=== PATIENT | male | born 1980 | race American Indian/Alaskan Native ===

== ENCOUNTER 2018-12-08 20:18 | Emergency (ER) | payer OTHER ==
[2018-12-08] MEDS ORDERED: TYLENOL PO ONE (20:27)
--- NOTE | 2018-12-08 21:39 | XRay Report ---
PROCEDURE: XR CHEST ROUTINE 2V TECHNIQUE: 2 view chest HISTORY: fever COMPARISONS: FINDINGS: Cardiac and mediastinal contours are unremarkable. No focal pulmonary infiltrate identified. No pleur al fluid collection seen. Minor vasculature is unremarkable. IMPRESSION: Negative two-view chest. This document is electronically signed by Sixto Rueda MD., December 08 2018 09:38:03 PM ET
--- NOTE | 2018-12-08 22:33 | Emergency Department Report ---
ED Fever HPI - General Chief Complaint: Chest Pain Stated Complaint: CHEST PAIN, CHILLS, FEVER, BODY ACHES Time Seen by Provider: 12/08/18 22:24 Source: patient, family - History of Present Illness Initial Comments: 38-year-old male presents to ED with complaint of fever. Patient reports fever of 103 at home. Patient also complaining of associated headache, cough, chest pain with cough, generalized body aches. Patient denies sore throat, vomiting, abdominal pain, diarrhea. states her daughter have one episode of vomiting yesterday, however no other symptoms. Patient did not receive flu shot this year. 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 denies: nausea/vomiting, shortness of breath, sore throat, stiff neck ED Review of Systems ROS: Stated complaint: CHEST PAIN, CHILLS, FEVER, BODY ACHES Other details as noted in HPI Comment: All other systems reviewed and negative Constitutional: fever ENT: denies: throat pain Respiratory: cough. denies: shortness of breath Cardiovascular: chest pain (with cough) Gastrointestinal: denies: abdominal pain, nausea, vomiting Musculoskeletal: myalgia Neurological: headache ED Past Medical Hx - Past Medical History Previous Medical History?: No - Surgical History Past Surgical History?: Yes Additional Surgical History: groin surgery - Social History Smoking Status: Never Smoker Substance Use Type: None - Medications Home Medications: Home Medications Medication Instructions Recorded Confirmed Last Taken Type Topiramate [Qudexy Xr] 12/08/18 Unknown History ED Physical Exam - General Limitations: No Limitations General appearance: alert, in no apparent distress, other (nontoxic-appearing) - Head Head exam: Present: atraumatic, normocephalic - Eye Eye exam: Present: normal appearance - ENT ENT exam: Present: mucous membranes moist - Neck Neck exam: Present: normal inspection - Respiratory Respiratory exam: Present: normal lung sounds bilaterally. Absent: respiratory distress - Cardiovascular Cardiovascular Exam: Present: regular rate, normal rhythm - GI/Abdominal GI/Abdominal exam: Present: soft. Absent: distended, tenderness - Extremities Exam Extremities exam: Present: normal inspection - Neurological Exam Neurological exam: Present: alert, oriented X3, CN II-XII intact. Absent: motor sensory deficit - Psychiatric Psychiatric exam: Present: normal affect, normal mood - Skin Skin exam: Present: warm, dry, intact, normal color ED Course Vital Signs 12/08/18 12/08/18 12/08/18 20:24 23:15 23:36 Temperature 102.4 F H 99.2 F Pulse Rate 105 H 78 Respiratory 18 15 15 Rate Blood Pressure 139/70 Blood Pressure 122/83 [Right] O2 Sat by Pulse 99 100 100 Oximetry ED Medical Decision Making - Radiology Data Radiology results: report reviewed - Medical Decision Making - fever, flu-like illness - CXR negative - rapid flu and strep negative - pt feeling better now that fever, aches improved - advised tylenol/ motrin for fever and pain, hydration - return precautions given - outpt f/u advised - Differential Diagnosis influenza, viral illness, pneumonia, strep throat Critical care attestation.: If time is entered above; I have spent that time in minutes in the direct care of this critically ill patient, excluding procedure time. ED Disposition Clinical Impression: Viral illness Disposition: DC-01 TO HOME OR SELFCARE Is pt being admited?: No Condition: Stable Instructions: Viral Syndrome (ED) Referrals: [facility] [Provider Group] - 3-5 Days ANIA FLOWERS MD [Staff Physician] - 3-5 Days Forms: Work/School Release Form(ED) Time of Disposition: 00:17
[2018-12-08 23:15] VITALS: BP 122/83
== END 2018-12-09 00:26 | disposition home or self-care (01) ==
LOC: ED 20:18
DX: B34.9 Viral infection, unspecified (principal)
CPT/HCPCS: 71046; 87116; 87400; 87430

== ENCOUNTER 2019-02-11 13:56 | Emergency (ER) | payer OTHER ==
--- NOTE | 2019-02-11 14:00 | Emergency Department Report ---
Blank Doc - Documentation Documentation: This is a 38-year-old male that presents with chest pain. Also sated has a dry cough. Denies any SOB. This initial assessment/diagnostic orders/clinical plan/treatment(s) is/are subject to change based on patient's health status, clinical progression and re- assessment by fellow clinical providers in the ED. Further treatment and workup at subsequent clinical providers discretion. Patient/guardians urged not to elope from the ED as their condition may be serious if not clinically assessed and managed. Initial orders include: 1- Patient sent to [facility] for further evaluation and treatment 2- labs 3- EKG 4- CXR
[2019-02-11 14:30] LABS: Basophils # (Auto) 0.1 K/mm3 (0.0-0.1); Basophils % (Auto) 0.6 % (0.0-1.8); Eosinophils % (Auto) 0.4 % (0.0-4.3); Hematocrit 39.4 % (35.5-45.6); Lymphocytes # (Auto) 2.8 K/mm3 (1.2-5.4); Mean Corpuscular HGB Conc 33 % (32-34); Mean Corpuscular Volume 74 fl (84-94); Monocytes # (Auto) 0.9 K/mm3 (0.0-0.8); Monocytes % (Auto) 9.4 % (0.0-7.3); Platelet Count 280 K/mm3 (140-440); Red Blood Count 5.29 M/mm3 (3.65-5.03); Red Cell Distribution Width 14.9 % (13.2-15.2)
[2019-02-11 14:41] LABS: INR 1.07 (0.87-1.13)
[2019-02-11 14:50] LABS: BUN/Creatinine Ratio 12; Blood Urea Nitrogen 12 mg/dL (9-20); Calcium 9.4 mg/dL (8.4-10.2); Hemolysis Index 1
--- NOTE | 2019-02-11 15:41 | XRay Report ---
PROCEDURE: XR CHEST ROUTINE 2V TECHNIQUE: PA and lateral chest radiographs were obtained. HISTORY: Chest Pain COMPARISONS: 12/08/2018. FINDINGS: Heart: Normal. Mediastinum/Vessels: Normal. Lungs/Pleural space: No infiltrate, effusion, or pneumothorax. Bony thorax: No acute osseous abnormality. IMPRESSION: No radiographic evidence of acute abnormality. This document is electronically signed by Lily Amato MD., February 11 2019 03:39:33 PM ET
--- NOTE | 2019-02-11 15:45 | Emergency Department Report ---
ED Chest Pain HPI - General Chief Complaint: Chest Pain Stated Complaint: CHEST PAIN/RT LEG PAIN Time Seen by Provider: 02/11/19 13:59 Source: patient Mode of arrival: Ambulatory Limitations: No Limitations - History of Present Illness Initial Comments: This is a 38 year-old male who presents to the emergency room with chest pain for one week. Patient reports pain is to the sternal area and nonradiating. Patient states pain is worse with swallowing and eating. Patient states he feels like after eating something is stuck in his immediate sternal area. He also reports a nonproductive cough after eating. He denies past medical history. Patient states he has a primary care doctor in [facility]. He has not tried anything for symptomatic relief. He denies nausea, vomiting, diarrhea, fever, chills, or palpitations. MD Complaint: chest pain Onset/Timin -: week(s) Onset: after eating Pain Location: substernal Pain Radiation: none Severity: severe Severity scale (0 -10): 10 Quality: aching, pressure Consistency: intermittent Improves With: nothing Worsens With: eating, other (swallowing) Other Symptoms: cough. denies: fever, syncope, rash, acid taste in mouth, leg swelling, palpitations, burping Treatments Prior to Arrival: none Aspirin use within the Past 7 Days: (0) No - Related Data On Oral Contraceptives: No Home Medications Medication Instructions Recorded Confirmed Last Taken Topiramate [Qudexy Xr] 12/08/18 Unknown Previous Rx's Medication Instructions Recorded Last Taken Type Penicillin V Potassium 500 mg PO BID #20 tablet 02/11/19 Unknown Rx methylPREDNISolone [Medrol 4MG 4 mg PO DAILY #1 tab.ds.pk 02/11/19 Unknown Rx DOSEPAK (21 tabs)] Allergies Allergy/AdvReac Type Severity Reaction Status Date / Time codeine Allergy Swelling Verified 02/11/19 14:02 Heart Score - HEART Score History: Slightly suspicious EKG: Normal Age: < 45 Risk factors: No known risk factors Troponin: < normal limit HEART Score: 0 ED Review of Systems ROS: Stated complaint: CHEST PAIN/RT LEG PAIN Other details as noted in HPI Constitutional: denies: chills, fever ENT: throat pain. denies: ear pain Respiratory: cough. denies: shortness of breath, wheezing Cardiovascular: chest pain. denies: palpitations Gastrointestinal: denies: abdominal pain, nausea, diarrhea Musculoskeletal: denies: myalgia Skin: denies: rash, lesions Neurological: denies: headache, weakness, paresthesias Psychiatric: denies: anxiety, depression ED Past Medical Hx - Past Medical History Previous Medical History?: No - Surgical History Past Surgical History?: Yes Additional Surgical History: groin surgery - Social History Smoking Status: Never Smoker Substance Use Type: None - Medications Home Medications: Home Medications Medication Instructions Recorded Confirmed Last Taken Type Topiramate [Qudexy Xr] 12/08/18 Unknown History Penicillin V Potassium 500 mg PO BID #20 tablet 02/11/19 Unknown Rx methylPREDNISolone [Medrol 4MG 4 mg PO DAILY #1 tab.ds.pk 02/11/19 Unknown Rx DOSEPAK (21 tabs)] ED Physical Exam - General Limitations: No Limitations General appearance: alert, in no apparent distress - ENT ENT exam: Present: mucous membranes moist, TM's normal bilaterally, normal external ear exam. Absent: normal orophraynx (erythematous enlarged tonsils with white exudate, uvula midline) - Neck Neck exam: Present: normal inspection - Respiratory Respiratory exam: Present: normal lung sounds bilaterally. Absent: respiratory distress - Cardiovascular Cardiovascular Exam: Present: regular rate, normal rhythm. Absent: systolic murmur, diastolic murmur, rubs, gallop - GI/Abdominal GI/Abdominal exam: Present: soft, normal bowel sounds. Absent: distended, tenderness, guarding, rebound, rigid - Neurological Exam Neurological exam: Present: alert, oriented X3 - Psychiatric Psychiatric exam: Present: normal affect, normal mood - Skin Skin exam: Present: warm, dry, intact, normal color. Absent: rash ED Course Vital Signs 02/11/19 13:59 Temperature 98.8 F Pulse Rate 83 Respiratory 14 Rate Blood Pressure 124/80 [Right] O2 Sat by Pulse 99 Oximetry ED Medical Decision Making - Lab Data Result diagrams: 02/11/19 14:07 02/11/19 14:07 Lab Results 02/11/19 02/11/19 02/11/19 Range/Units 14:06 14:07 14:07 WBC 9.4 (4.5-11.0) K/mm3 RBC 5.29 H (3.65-5.03) M/mm3 Hgb 13.0 (11.8-15.2) gm/dl Hct 39.4 (35.5-45.6) % MCV 74 L (84-94) fl MCH 25 L (28-32) pg MCHC 33 (32-34) % RDW 14.9 (13.2-15.2) % Plt Count 280 (140-440) K/mm3 Lymph % (Auto) 30.0 (13.4-35.0) % Baxter % (Auto) 9.4 H (0.0-7.3) % Eos % (Auto) 0.4 (0.0-4.3) % Baso % (Auto) 0.6 (0.0-1.8) % Lymph # 2.8 (1.2-5.4) K/mm3 Baxter # 0.9 H (0.0-0.8) K/mm3 Eos # 0.0 (0.0-0.4) K/mm3 Baso # 0.1 (0.0-0.1) K/mm3 Seg Neutrophils % 59.6 (40.0-70.0) % Seg Neutrophils # 5.6 (1.8-7.7) K/mm3 PT 14.6 (12.2-14.9) Sec. INR 1.07 (0.87-1.13) APTT 28.0 (24.2-36.6) Sec. Sodium 139 (137-145) mmol/L Potassium 4.1 (3.6-5.0) mmol/L Chloride 101.4 (98-107) mmol/L Carbon Dioxide 23 (22-30) mmol/L Anion Gap 19 mmol/L BUN 12 (9-20) mg/dL Creatinine 1.0 (0.8-1.5) mg/dL Estimated GFR > 60 ml/min BUN/Creatinine Ratio 12 % Glucose 89 (75-100) mg/dL Calcium 9.4 (8.4-10.2) mg/dL Troponin T < 0.010 (0.00-0.029) ng/mL Group A Strep Rapid (Negative) 02/11/19 02/11/19 Range/Units 16:54 Unknown WBC (4.5-11.0) K/mm3 RBC (3.65-5.03) M/mm3 Hgb (11.8-15.2) gm/dl Hct (35.5-45.6) % MCV (84-94) fl MCH (28-32) pg MCHC (32-34) % RDW (13.2-15.2) % Plt Count (140-440) K/mm3 Lymph % (Auto) (13.4-35.0) % Baxter % (Auto) (0.0-7.3) % Eos % (Auto) (0.0-4.3) % Baso % (Auto) (0.0-1.8) % Lymph # (1.2-5.4) K/mm3 Baxter # (0.0-0.8) K/mm3 Eos # (0.0-0.4) K/mm3 Baso # (0.0-0.1) K/mm3 Seg Neutrophils % (40.0-70.0) % Seg Neutrophils # (1.8-7.7) K/mm3 PT (12.2-14.9) Sec. INR (0.87-1.13) APTT (24.2-36.6) Sec. Sodium (137-145) mmol/L Potassium (3.6-5.0) mmol/L Chloride (98-107) mmol/L Carbon Dioxide (22-30) mmol/L Anion Gap mmol/L BUN (9-20) mg/dL Creatinine (0.8-1.5) mg/dL Estimated GFR ml/min BUN/Creatinine Ratio % Glucose (75-100) mg/dL Calcium (8.4-10.2) mg/dL Troponin T < 0.010 (0.00-0.029) ng/mL Group A Strep Rapid Negative (Negative) - EKG Data -: No EKG Interpreted by Me (EKG interpreted by attending) EKG shows normal: sinus rhythm Rate: normal - Radiology Data Radiology results: report reviewed PROCEDURE: XR CHEST ROUTINE 2V TECHNIQUE: PA and lateral chest radiographs were obtained. HISTORY: Chest Pain COMPARISONS: 12/08/2018. FINDINGS: Heart: Normal. Mediastinum/Vessels: Normal. Lungs/Pleural space: No infiltrate, effusion, or pneumothorax. Bony thorax: No acute osseous abnormality. IMPRESSION: No radiographic evidence of acute abnormality. - Medical Decision Making Patient was examined by me. Vitals are normal and patient is in no acute distress. Obtained labs and chest x-ray. Labs are unremarkable, reviewed labs above. Chest x-ray negative for acute cardiopulmonary findings. On focal exam areas enlarged erythematous tonsils with white exudate although negative strep test. Patient will be treated with penicillin and Medrol Dosepak. Patient informed of results. Instructed to take Tylenol or ibuprofen for pain. Plan discussed with patient to discharge home and treat outpatient. He agrees with ER plan. Patient discharged home in stable condition. Follow up with PCP in 2-3 days. Critical care attestation.: If time is entered above; I have spent that time in minutes in the direct care of this critically ill patient, excluding procedure time. ED Disposition Clinical Impression: Chest pain Qualifiers: Chest pain type: chest pain on breathing Qualified Code(s): R07.1 - Chest pain on breathing; R07.81 - Pleurodynia Acute pharyngitis Qualifiers: Pharyngitis/tonsillitis etiology: unspecified etiology Qualified Code(s): J02.9 - Acute pharyngitis, unspecified Disposition: TO HOME OR SELFCARE Is pt being admited?: No Does the pt Need Aspirin: No Condition: Stable Instructions: Chest Pain (ED), Pharyngitis (ED) Additional Instructions: Expect symptoms to improve within 3 or 4 days. There is no need for bed rest or isolation. Use Tylenol or ibuprofen for symptoms of sore throat, headache, and fever. Return to work in 24 hours of taking antibiotics. Follow up with Primary Care Provider in 48-72 hours. Prescriptions: methylPREDNISolone [Medrol 4MG DOSEPAK (21 tabs)] 4 mg PO DAILY #1 tab.ds.pk Penicillin V Potassium 500 mg PO BID #20 tablet Referrals: BENNETT STEPHENSON MD [Primary Care Provider] - 3-5 Days [facility] [Provider Group] - 3-5 Days [facility] [Provider Group] - 3-5 Days [facility] [Provider Group] - 3-5 Days Forms: Work/School Release Form(ED) Time of Disposition: 18:16
[2019-02-11 18:28] VITALS: BP 129/87
== END 2019-02-11 18:28 | disposition home or self-care (01) ==
LOC: ED 13:56
DX: J02.9 Acute pharyngitis, unspecified (principal); R07.89 Other chest pain; Z88.5 Allergy status to narcotic agent; Z98.890 Other specified postprocedural states
CPT/HCPCS: 36415; 71046; 80048; 84484; 85025; 85610; 85730; 87116; 87430; 93005; 93010

== ENCOUNTER 2019-02-15 17:35 | Emergency (ER) | payer OTHER ==
--- NOTE | 2019-02-15 17:43 | Emergency Department Report ---
Blank Doc - Documentation Documentation: This is a 38-year-old male that presents with allergic reaction to PCN. Stated was prescribed PCN and after taking it starts to have rash with itching. Denies SOB or difficulty breathing. Exam: no angioedema. uvula midline. This initial assessment/diagnostic orders/clinical plan/treatment(s) is/are subject to change based on patient's health status, clinical progression and re- assessment by fellow clinical providers in the ED. Further treatment and workup at subsequent clinical providers discretion. Patient/guardians urged not to elope from the ED as their condition may be serious if not clinically assessed and managed. Initial orders include: 1- Patient sent to [facility] for further evaluation and treatment
[2019-02-15] MEDS ORDERED: DELTASONE PO ONE (19:08)
--- NOTE | 2019-02-15 19:16 | Emergency Department Report ---
HPI - General Chief Complaint: Allergic Reaction Time Seen by Provider: 02/15/19 17:43 - HPI HPI: 38-year-old male presents to the emergency department with a complaint of a rash to the arms, chest, abdomen and back that is itchy and feels like a warm burning sensation. This started after the patient took a dose of penicillin and prednisone that he was prescribed here on 02/11/19. The patient was here for a different reason but the provider at that time felt that the patient had signs of strep pharyngitis. The patient stopped the penicillin and the steroid as he did not know at that time what the culprit or offending agent might be. He denies any involvement of the oral mucosa, the palms, the soles, swelling of the lips or tongue, shortness of breath, difficulty swallowing, or any chest pain. He otherwise he denies any past medical history. No recent travel or sick contacts at home. ED Past Medical Hx - Past Medical History Previous Medical History?: No - Surgical History Past Surgical History?: Yes Additional Surgical History: groin surgery - Social History Smoking Status: Never Smoker Substance Use Type: None - Medications Home Medications: Home Medications Medication Instructions Recorded Confirmed Last Taken Type Topiramate [Qudexy Xr] 12/08/18 Unknown History Famotidine [Pepcid] 20 mg PO BID #8 tablet 02/15/19 Unknown Rx methylPREDNISolone [Medrol 4MG 4 mg PO DAILY #1 tab.ds.pk 02/15/19 Unknown Rx DOSEPAK (21 tabs)] predniSONE [Deltasone] 20 mg PO BID #8 tab 02/15/19 Unknown Rx ED Review of Systems ROS: Stated complaint: OUTBREAK ALL OVER BODY Other details as noted in HPI Comment: All other systems reviewed and negative Constitutional: denies: chills, fever Eyes: denies: eye pain, vision change ENT: denies: ear pain, throat pain Respiratory: denies: cough, shortness of breath Cardiovascular: denies: chest pain, palpitations Gastrointestinal: denies: abdominal pain, vomiting Genitourinary: denies: dysuria, discharge Musculoskeletal: denies: back pain, arthralgia Skin: rash, pruritus Neurological: denies: headache, weakness Physical Exam - Physical Exam Vital Signs: Vital Signs 02/15/19 17:42 Temperature 98.1 F Pulse Rate 80 Respiratory 16 Rate Blood Pressure 131/68 O2 Sat by Pulse 98 Oximetry Physical Exam: GENERAL: The patient is well-developed well-nourished. HENT: Normocephalic. Atraumatic. Patient has moist mucous membranes. Oropharynx is clear without tonsillar hypertrophy, erythema or exudates. EYES: Extraocular motions are intact. Pupils equal reactive to light bilatera lly. NECK: Supple. Trachea is midline. CHEST/LUNGS: Clear to auscultation. There is no respiratory distress noted. HEART/CARDIOVASCULAR: Regular. There is no tachycardia. There is no murmur. ABDOMEN: There is no abdominal distention. SKIN: Patient has some nonspecific dermatitis or large confluent urticaria to the bilateral upper extremities, upper abdomen and chest and the back. There is no involvement in the oropharynx or mucosal, or either the palms or soles. NEURO: The patient is awake, alert, and oriented. The patient is cooperative. The patient has no focal neurologic deficits. The patient has normal speech. MUSCULOSKELETAL: There is no tenderness or deformity. There is no evidence of acute injury. ED Course Vital Signs 02/15/19 17:42 Temperature 98.1 F Pulse Rate 80 Respiratory 16 Rate Blood Pressure 131/68 O2 Sat by Pulse 98 Oximetry ED Medical Decision Making - Medical Decision Making This patient presents to the emergency department with a rash to the bilateral arms, abdomen, chest and back was both pruritic and has a burning sensation that started after the patient was started on penicillin and a Medrol Dosepak. I took a look at the patient's oropharynx I do not see any signs of erythema, exudates or hypertrophy concerning for strep or viral pharyngitis or mononucleosis. Of the 2 medications, it is most likely a reaction to the penicillin. The patient does not appear to require any switch of antibiotics as I do not see any signs of infection. There is no involvement of the palms, soles. There is no blistering. The patient does not have any fever and his vital signs are stable. He was given a dose of prednisone and Pepcid. He will discontinue the penicillin. He was given a prescription for a 4 day course of steroids and Pepcid and will use [id number] antibiotics as necessary. He was given a referral for dermatology. We discussed signs of angioedema and anaphylaxis from which the patient would call 911 or immediately return to the emergency department. - Differential Diagnosis drug rash, allergic reaction, dermatitis, cellulitis Critical Care Time: No Critical care attestation.: If time is entered above; I have spent that time in minutes in the direct care of this critically ill patient, excluding procedure time. ED Disposition Clinical Impression: Dermatitis Allergic reaction Qualifiers: Encounter type: initial encounter Qualified Code(s): T78.40XA - Allergy, unspecified, initial encounter Disposition: TO HOME OR SELFCARE Is pt being admited?: No Condition: Stable Instructions: Urticaria (ED), Acute Rash (ED) Additional Instructions: Please stop taking the penicillin, or do not restart it. Continue taking the prednisone (steroids) starting tomorrow, as you already received a dose here today. Return to the emergency department immediately with any worsening of your symptoms including increased rash, swelling of the lips/tongue/throat, difficulty swallowing, shortness of breath, chest pain, or with any acute distress. Please follow-up with your primary care physician. I am giving him for a local ophthalmology technician in case you need to follow up rega rding the rash. Prescriptions: predniSONE [Deltasone] 20 mg PO BID #8 tab methylPREDNISolone [Medrol 4MG DOSEPAK (21 tabs)] 4 mg PO DAILY #1 tab.ds.pk Famotidine [Pepcid] 20 mg PO BID #8 tablet Referrals: SOLANGE LYNCH MD [Staff Physician] - 2-3 Days
[2019-02-15] MEDS ORDERED: PEPCID PO ONE (19:29)
[2019-02-15 19:47] VITALS: BP 128/65
== END 2019-02-15 19:47 | disposition home or self-care (01) ==
LOC: ED 17:35
DX: T78.40XA Allergy, unspecified, initial encounter (principal); L30.9 Dermatitis, unspecified; Z88.5 Allergy status to narcotic agent; X58.XXXA Exposure to other specified factors, initial encounter
CPT/HCPCS: 99282; J7512